=== PATIENT | male | born 1985 | race Caucasian/White ===

== ENCOUNTER 2018-12-22 10:27 | Emergency (ER) | payer BC, OTHER ==
--- NOTE | 2018-12-22 10:51 | ER Document Report ---
ED Medical Screen (RME) - General Chief Complaint: Headache Stated Complaint: HEADACHE/VOMITING Time Seen by Provider: 12/22/18 10:50 Mode of Arrival: Ambulatory Information source: Patient Notes: This is a 33-year-old man with no medical problems who was usual state of health until 10 PM last night when he started having a frontal headache. He states that the headache is "terrible". He was unable to sleep. He denies any fever. He does report photophobia. There is no neck stiffness. He is afebrile in the emergency room. He does report increased stress at work. TRAVEL OUTSIDE OF THE [place] IN LAST 30 DAYS: No - Related Data Allergies/Adverse Reactions: No Known Allergies Allergy (Verified 12/22/18 10:28) Past Medical History - Social History Frequency of alcohol use: Occasional Drug Abuse: None Renal/ Medical History: Denies: Hx Peritoneal Dialysis - Immunizations Hx Diphtheria, Pertussis, Tetanus Vaccination: Yes - pt states UTD Physical Exam - Vital signs Vitals: Temp Pulse Resp BP Pulse Ox 98.3 F 72 18 148/99 H 100 12/22/18 10:32 12/22/18 10:32 12/22/18 10:32 12/22/18 10:32 12/22/18 10:32 Course - Vital Signs Vital signs: Temp Pulse Resp BP Pulse Ox 98.3 F 72 18 148/99 H 100 12/22/18 10:32 12/22/18 10:32 12/22/18 10:32 12/22/18 10:32 12/22/18 10:32
[2018-12-22] MEDS ORDERED: METOCLOPRAMIDE HCL INJ/PF 10 MG/2 ML SDV IV ONE (10:52)
[2018-12-22] MEDS ORDERED: RINGERS SOLUTION,LACTATED 1,000 ML IV ONE (10:52)
[2018-12-22] MEDS ORDERED: DIPHENHYDRAMINE HCL 50 MG/ML VIAL IV ONE (10:53)
[2018-12-22] MEDS ORDERED: PROCHLORPERAZINE EDISYLATE INJ 10 MG/2 ML VIAL IV ONE (11:04)
[2018-12-22 11:08] LABS: ABSOLUTE LYMPHOCYTES (AUTO) 1.2 10^3/uL (0.5-4.7); ABSOLUTE MONOCYTES (AUTO) 0.3 10^3/uL (0.1-1.4); ABSOLUTE NEUT (AUTO) 5.3 10^3/uL (1.7-8.2); BASOPHILS % (AUTO) 0.5 % (0-2); EOSINOPHILS % (AUTO) 0.2 % (0-6); HEMATOCRIT 37.2 % (37.9-51.0); LYMPHOCYTES % (AUTO) 17.6 % (13-45); MEAN CORPUSCULAR HEMOGLOBIN 29.7 pg (27.0-33.4); MEAN CORPUSCULAR HGB CONC 34.9 g/dL (32.0-36.0); MEAN CORPUSCULAR VOLUME 85 fl (80-97); MONOCYTES % (AUTO) 4.6 % (3-13); PLATELET COUNT 398 10^3/uL (150-450); RED BLOOD COUNT 4.38 10^6/uL (4.35-5.55); RED CELL DISTRIBUTION WIDTH 12.8 % (11.5-14.0); SEGMENTED NEUTROPHILS % (AUTO) 77.1 % (42-78); TOTAL CELLS COUNTED % (AUTO) 100 %; WHITE BLOOD COUNT 6.9 10^3/uL (4.0-10.5)
--- NOTE | 2018-12-22 11:36 | RADIOLOGY REPORT (SQ) ---
EXAM DESCRIPTION: CT HEAD WITHOUT COMPLETED DATE/TIME: 12/22/2018 11:15 am REASON FOR STUDY: headache COMPARISON: None. TECHNIQUE: Axial images acquired through the brain without intravenous contrast. Images reviewed wi th bone, brain and subdural windows. Additional sagittal and coronal reconstructions were generated. Images stored on PACS. All CT scanners at this facility use dose modulation, iterative reconstruction, and/or weight based d osing when appropriate to reduce radiation dose to as low as reasonably achievable (ALARA). [facility]: Dose Right [facility]: CareDose [facility]: Dose Right [facility]: Teradose 4D [facility]: Seeqpod RADIATION DOSE: CT Rad equipment meets quality standard of care and radiation dose reduction techniq ues were employed. CTDIvol: 53.2 mGy. DLP: 1097 mGy-cm. mGy. LIMITATIONS: None. FINDINGS: 4 cm x 3 cm x 2 cm pituitary mass is present, evident on axial image 15, coronal images 34 -41, and sagittal image 34. This may represent a macroadenoma or craniopharyngioma. Report called aram Mulligan in the emergency room. This mass effaces the suprasellar cistern and abuts the opt ic chiasm. VENTRICLES: Normal size and contour. CEREBRUM: Pituitary mass. No hemorrhage. No midline shift. No evidence for acute infarction. Amanda l schofield/white matter differentiation. No areas of low density in the white matter. CEREBELLUM: No masses. No hemorrhage. No alteration of density. No evidence for acute infarction. EXTRAAXIAL SPACES: No fluid collections. No masses. ORBITS AND GLOBE: No intra- or extraconal masses. Normal contour of globe without masses. CALVARIUM: No fracture. PARANASAL SINUSES: No fluid or mucosal thickening. SOFT TISSUES: No mass or hematoma. OTHER: No other significant finding. IMPRESSION: 4 x 3 x 2 cm pituitary mass, adenoma versus craniopharyngioma No acute findings EVIDENCE OF ACUTE STROKE: NO. COMMENT: Quality ID # 436: Final reports with documentation of one or more dose reduction techniques (e.g., Automated exposure control, adjustment of the mA and/or kV according to patient size, use of iterative reconstruction technique) TECHNICAL DOCUMENTATION: JOB ID: [id number] [employer]- All Rights Reserved Reading location - IP/workstation name: [email or web address]
[2018-12-22 11:39] LABS: ALANINE AMINOTRANSFERASE 46 U/L (21-72); ALBUMIN 5.3 g/dL (3.5-5.0); ALKALINE PHOSPHATASE 84 U/L (38-126); ANION GAP 11 (5-19); ASPARTATE AMINO TRANSFERASE 31 U/L (17-59); BILIRUBIN,DIRECT 0.2 mg/dL (0.0-0.4); BILIRUBIN,TOTAL 0.5 mg/dL (0.2-1.3); BLOOD UREA NITROGEN 15 mg/dL (7-20); CALCIUM 10.3 mg/dL (8.4-10.2); CARBON DIOXIDE 28 mmol/L (22-30); CHLORIDE 98 mmol/L (98-107); GLUCOSE 123 mg/dL (75-110); POTASSIUM 4.4 mmol/L (3.6-5.0); SODIUM 136.8 mmol/L (137-145); TOTAL PROTEIN 8.6 g/dL (6.3-8.2)
[2018-12-22] MEDS ORDERED: ONDANSETRON HCL INJ/PF 4 MG/2 ML SDV IV ONE (11:56)
[2018-12-22] MEDS ORDERED: MORPHINE SULFATE 10 MG/ML INJ IV ONE (11:56)
[2018-12-22] MEDS ORDERED: DEXAMETHASONE SOD PHOSPHATE INJ 4 MG/1 ML VIAL IV ONE (13:09)
--- NOTE | 2018-12-22 14:11 | RADIOLOGY REPORT (SQ) ---
EXAM DESCRIPTION: CTA HEAD COMPLETED DATE/TIME: 12/22/2018 1:48 pm REASON FOR STUDY: Headache and pituitary mass COMPARISON: CT brain without IV contrast earlier today TECHNIQUE: Post IV contrast scanning, thin section axial imaging through the brain to evaluate the a rterial structures. Source and MIP images are saved and reviewed on PACS. Advanced 3D imaging as volume-rendering, MIPs, SSD performed? yes All CT scanners at this facility use dose modulation, iterative reconstruction, and/or weight based d osing when appropriate to reduce radiation dose to as low as reasonably achievable (ALARA). [facility]: Dose Right [facility]: CareDose [facility]: Dose Right [facility]: Teradose 4D [facility]: [employer] CONTRAST TYPE AND DOSE: contrast/concentration: Isovue 350.00 mg/ml; Total Contrast Delivered: 70.0 ml; Total Saline Delivered: 75.0 ml RENAL FUNCTION: Creatinine 0.8 LIMITATIONS: None. FINDINGS: [place]: The anterior, middle, posterior cerebral arteries are all patent. No ev idence of aneurysm or focal stenosis. However, the bilateral parasellar carotid arteries are displac ed laterally by a pituitary fossa mass. POSTERIOR CIRCULATION: The distal vertebral arteries are patent as is the basilar artery. No aneurysm . BRAIN: Pituitary fossa mass is present, 3.5 cm craniocaudad by 2.7 cm transverse by 2.1 cm AP. Inter mediate density material in the mass, hemorrhage superimposed on craniopharyngioma or pituitary macro adenoma may be present. This flattens the undersurface of the optic chiasm and fills the suprasellar cisterns. Cavernous sinuses are displaced laterally. BONES: Bony remodeling with enlargement of the sella turcica. SINUSES: No fluid or mucosal thickening. OTHER: Neck soft tissues in the field of view are unremarkable. No carotid bifurcation stenosis. No cervical carotid or cervical vertebral artery dissection. IMPRESSION: NO CTA EVIDENCE OF STENOSIS OR ANEURYSM OF THE [place]. 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 BORDERS OF THIS LESION ARE BETTER VISUALIZED THAN ON THE NON CONTRASTED STUDY. TECHNICAL DOCUMENTATION: JOB ID: [id number] Quality ID # [id number]: Final reports with documentation of one or more dose reduction techniques (e.g., Au tomated exposure control, adjustment of the mA and/or kV according to patient size, use of iterative reconstruction technique) 2010 [employer]- All Rights Reserved Reading location - IP/workstation name: [email or web address]
[2018-12-22 14:36] LABS: FREE T4 (FREE THYROXINE) 0.72 ng/dL (0.78-2.19)
--- NOTE | 2018-12-22 14:46 | ER Document Report ---
ED Headache - General Chief Complaint: Headache Stated Complaint: HEADACHE/VOMITING Time Seen by Provider: 12/22/18 10:50 Primary Care Provider: MOHINI ARIAS DO [Primary Care Provider] - Follow up as needed Mode of Arrival: Ambulatory Notes: Patient says that he has had a headache since about 10 PM last night. He has no history of headaches and is never been told he had migraine headaches. He says that he had eaten supper last night and went to bed and about couple hours later, he was awakened with this severe headache. Worst headache he has ever had. He was not able to sleep the rest of the night. He has not had any problems with his balance or walking. Has noted some blurry vision, but no other visual disturbances. He vomited a couple of times during the night and also had similar number of diarrhea stools. Denies any abdominal pains. Has not had any fever. Past medical history is essentially unremarkable. TRAVEL OUTSIDE OF THE [place] IN LAST 30 DAYS: No - Related Data Allergies/Adverse Reactions: No Known Allergies Allergy (Verified 12/22/18 10:28) Past Medical History - General Information source: Patient - Social History Smoking Status: Never Smoker Frequency of alcohol use: Occasional Drug Abuse: None Family History: Reviewed & Not Pertinent Patient has suicidal ideation: No Patient has homicidal ideation: No Neurological Medical History: Denies: Hx Cerebrovascular Accident, Hx Migraine, Hx Seizures Surgical Hx: Negative Past Surgical History: Reports: None - Immunizations Hx Diphtheria, Pertussis, Tetanus Vaccination: Yes - pt states UTD Review of Systems - Review of Systems Notes: REVIEW OF SYSTEMS: CONSTITUTIONAL : Denies fever. EENT: Denies eye, ear, nose or mouth or throat pain or other symptoms. CARDIOVASCULAR: Denies chest pain. RESPIRATORY: Denies cough, chest congestion, or shortness of breath. GASTROINTESTINAL: Denies abdominal pain or nausea, vomiting, or diarrhea. GENITOURINARY: Denies difficulty or painful urinating, urinary frequency, blood in urine. MUSCULOSKELETAL: Denies back or neck pain. Denies joint pain or swelling. SKIN: Denies rash or skin lesions. NEUROLOGICAL: Denies LOC or altered mental status. See HPI regarding headache. Denies sensory loss or motor deficits. ALL OTHER SYSTEMS REVIEWED AND NEGATIVE. Physical Exam - Vital signs Vitals: Temp Pulse Resp BP Pulse Ox 98.3 F 72 18 148/99 H 100 12/22/18 10:32 12/22/18 10:32 12/22/18 10:32 12/22/18 10:32 12/22/18 10:32 Interpretation: Normal. No: Febrile Notes: PHYSICAL EXAMINATION: GENERAL: Well-appearing, in no acute distress. Vital signs are all essentially normal. Appears uncomfortable. HEAD: Atraumatic, normocephalic. EYES: Pupils equal round and reactive to light, extraocular movements intact. ENT: oropharynx clear without exudates. Moist mucous membranes. NECK: Normal range of motion, supple. LUNGS: Breath sounds clear and equal bilaterally. HEART: Regular rate and rhythm without murmurs. ABDOMEN: Soft, nontender. No guarding or rebound. No masses. BACK: No tenderness throughout entire back. EXTREMITIES: Normal range of motion without pain. NEUROLOGICAL: Normal speech, normal gait. Normal sensory, motor, and reflex exams. Awake, alert, and oriented x3. Cranial nerves normal. PSYCH: Normal mood, normal affect. SKIN: Warm, dry, no rashes. Course - Re-evaluation Re-evalutation: May patient and family aware of findings and the patient will need the services of a major referral institution like [facility], where there neurosurgical staff is well recognized as a [facility]. I spoke with Dr. Austin, neurosurgery at [facility], who said that they would not do anything with the patient if he was being seen today. He recommended a CTA of the patient's brain to make sure he does not have an aneurysm as well as his pituitary mass. He recommended not doing a lumbar puncture for concerns over possible increased intracranial pressure. It would be unlikely that the patient would have both a brain tumor as well as a intracranial hemorrhage at the same time. There are no signs or symptoms of an infectious process. advised lab studies that they would like to have. All of the studies were ordered. While patient was here, 's staff, endocrinology, at [facility] contacted the patient's mother and they have arranged for the patient to be seen in their office on Tuesday morning. All lab studies, imaging studies, were provided to the family to take with them. Patient has been given a note for work for the next 10 days. Sufficient pain medications were provided. Patient was discharged on a low dose of Decadron 2 mg twice a day, again at Dr. Austin's - Vital Signs Vital signs: Temp Pulse Resp BP Pulse Ox 98.3 F 72 18 148/99 H 95 12/22/18 10:32 12/22/18 10:32 12/22/18 14:00 12/22/18 10:32 12/22/18 14:00 - Laboratory Result Diagrams: 12/22/18 10:58 12/22/18 10:58 Laboratory results interpreted by me: 12/22/18 12/22/18 10:58 10:58 Hgb 13.0 L Hct 37.2 L Sodium 136.8 L Glucose 123 H Calcium 10.3 H Total Protein 8.6 H Albumin 5.3 H - Diagnostic Test Radiology reviewed: Image reviewed, Reports reviewed - Patient CT scan shows a fairly large pituitary mass. Discharge - Discharge Clinical Impression: Headache, Pituitary brain tumor Condition: Stable Disposition: HOME, SELF-CARE Additional Instructions: Brain tumor Your workup today found that you have a tumor of your pituitary of your brain. We have contacted neurosurgeons at [facility] and they would like to see you in their office in about a week to assess the situation and make recommendations for your care. They have made recommendations of additional lab work for us to order and of medications for your condition. ANTINAUSEA MEDICATION: You have been given a medication to suppress nausea and vomiting. This type of medication can be given as a shot, pill, or suppository. It will usually last for many hours. Pills and shots usually last six to eight hours, suppositories last about 12 hours. For the typical illness, only one or two doses of the medication may be necessary. Mild lightheadedness may occur. This type of medicine can cause drowsiness. Do not drive or operate dangerous machinery while under its influ ence. Do not mix with alcohol. See your doctor at once if you have muscle spasms or tightness, or uncontrollable motions (particularly of the neck, mouth, or jaw). Persistent vomiting or severe lightheadedness should also be evaluated by the physician. INTRAVENOUS COMPAZINE FOR HEADACHE: You have received therapy for headaches, using intravenous Compazine. This treatment is dramatically successful in relieving the headache in about 50 percent of cases. When it works, it provides a rapid method of eliminating the headache without resorting to narcotics (and the problems associated with them). Most patients still feel fully alert after the Compazine, but others may be slightly drowsy. It's best not to drive or work with machinery for six to eight hours. Do not take alcohol or other medication unless you discuss it with the doctor. If you develop tightness and spasms in your muscles, especially the neck and tongue, you should return. This is a side effect which can be treated. PAIN MEDICATION INJECTION: You have received an injection of a pain medication. You should experience significant pain relief within 45 minutes. This drug is a narcotic -- it will impair your judgement, slow your reaction time and make you sleepy (as well as relieve your pain). Narcotics also can cause nausea. You should not drive, work with machinery, or perform any task requiring mental alertness until all effects of the medication are gone -- six to eight hours. Do not take any alcohol, or sedatives, and do not take any other medication without checking with your physician. ORAL NARCOTIC MEDICATION: You have been given a prescription for pain control. This medication is a narcotic. It's best taken with food, as nausea can result if taken on an empty stomach. Don't operate machinery or drive within six hours of taking this medication. Do not combine this medicine with alcohol, or with any medication which can cause sedation (such as cold tablets or sleeping pills) unless you get permission from the physician. Narcotics tend to cause constipation. If possible, drink plenty of fluids and eat a diet high in fiber and fruits. STEROID MEDICATION: You have been given a medicine of the cortisone/steroid class. This medication is used to control inflammation or allergy. It is usually only given for a short period of time, until the acute process subsides. There are usually no side effects from short-term use of cortisone-like medications. Some persons feel an increased sense of well-being and are not sleepy at bedtime. Long-term use of cortisone medications is best avoided, unless required for a severe condition. If your condition does not remit, or relapses after the course of corticosteroid medication, you should consult your physician. FOLLOW-UP CARE: If you have been referred to a physician for follow-up care, call the physicians office for an appointment as you were instructed or within the next two days. If you experience worsening or a significant change in your symptoms, notify the physician immediately or return to the Emergency Department at any time for re-evaluation. If you have not heard from Dr. Dominguez's office by Tuesday at noon, call me on my cell phone or my home number and I will see what I can do about facilitating your appointment up there at [facility]. Prescriptions: Dexamethasone [Decadron 4 Mg Tablet] 2 mg PO BID #20 tablet Ondansetron [Zofran Odt 4 mg Tablet] 1 - 2 tab PO Q4H PRN #25 tab.rapdis PRN Reason: For Nausea/Vomiting Oxycodone HCl/Acetaminophen [Percocet 5-325 mg Tablet] 1 - 2 tab PO Q4H PRN #25 tablet PRN Reason: Forms: Return to Work
[2018-12-22 14:50] LABS: THYROID STIMULATING HORMONE 0.36 uIU/mL (0.47-4.68)
[2018-12-22 15:13] VITALS: BP 123/77
== END 2018-12-22 15:13 | disposition home or self-care (01) ==
LOC: ER 10:27
DX: D35.2 Benign neoplasm of pituitary gland (principal); R51 Headache; R11.10 Vomiting, unspecified; R19.7 Diarrhea, unspecified
CPT/HCPCS: 99284; 96361; 96374; 96375; 36415; 84439; 84443; 84403; 85025; 80053; 84402; 82533; 83001; 83002; 84146; 70450; 70496; J1100; J1200; J2270; J0780; J2405; J7120

== ENCOUNTER 2018-12-23 10:48 | Emergency (ER) | payer BC ==
--- NOTE | 2018-12-23 11:07 | ER Document Report ---
ED Medical Screen (RME) - General Chief Complaint: Loss of Vision Stated Complaint: VISION ISSUE Time Seen by Provider: 12/23/18 11:02 Primary Care Provider: MOHINI ARIAS DO [Primary Care Provider] - Follow up as needed Mode of Arrival: Ambulatory Information source: Patient, Relative, [facility] Records Notes: 33-year-old male presents with complaint of headache, visual changes. Was recently diagnosed with a brain tumor but states headache has progressively gotten worse. Reports that he has an appointment at [facility] on Tuesday but could not handle the headache. I have greeted and performed a rapid initial assessment of this patient. A comprehensive ED assessment and evaluation of the patient, analysis of test results and completion of medical decision making process we will be contacted by additional ED providers. PHYSICAL EXAMINATION: Vital signs reviewed GENERAL: Ill-appearing. LUNGS: No respiratory distress Musculoskeletal: Normal range of motion NEUROLOGICAL: Normal speech, normal gait. PSYCH: Normal mood, normal affect. SKIN: Warm, Dry, normal turgor, no rashes or lesions noted. TRAVEL OUTSIDE OF THE [place] IN LAST 30 DAYS: No - HPI Onset: Other Onset/Duration: Persistent, Worse Quality of pain: Throbbing Severity: Moderate Associated Symptoms: Headache, Other - Visual loss Exacerbated by: Denies Relieved by: Denies Similar symptoms previously: No Recently seen / treated by doctor: Yes - Related Data Smoking: Non-smoker Frequency of alcohol use: None Drug Abuse: None Allergies/Adverse Reactions: No Known Allergies Allergy (Verified 12/22/18 10:28) Past Medical History Neurological Medical History: Denies: Hx Cerebrovascular Accident, Hx Migraine, Hx Seizures Renal/ Medical History: Denies: Hx Peritoneal Dialysis - Immunizations Hx Diphtheria, Pertussis, Tetanus Vaccination: Yes - pt states UTD Physical Exam - Vital signs Vitals: Temp Pulse Resp BP Pulse Ox 99.0 F 71 16 127/88 H 100 12/23/18 10:53 12/23/18 10:53 12/23/18 10:53 12/23/18 10:53 12/23/18 10:53 Course - Vital Signs Vital signs: Temp Pulse Resp BP Pulse Ox 99.0 F 71 16 127/88 H 100 12/23/18 10:53 12/23/18 10:53 12/23/18 10:53 12/23/18 10:53 12/23/18 10:53 Doctor's Discharge - Discharge Referrals: MOHINI ARIAS DO [Primary Care Provider] - Follow up as needed
[2018-12-23] MEDS ORDERED: LORAZEPAM INJ 2 MG/1 ML VIAL IV ONE (11:23)
[2018-12-23] MEDS ORDERED: NORMAL SALINE 1000 ML 1,000 ML IV ONE (11:24)
[2018-12-23] MEDS ORDERED: TETRACAINE HCL 0.5% OPH SOLN 4 ML OU ONE (11:39)
--- NOTE | 2018-12-23 11:40 | ER Document Report ---
ED Neuro Symptoms/Deficit - General Chief Complaint: Loss of Vision Stated Complaint: VISION ISSUE Time Seen by Provider: 12/23/18 11:02 Primary Care Provider: MOHINI ARIAS DO [Primary Care Provider] - Follow up as needed Mode of Arrival: Ambulatory Information source: Patient Notes: Patient is a 33-year-old male who was just diagnosed yesterday with a 3 x 4 x 2 cm pituitary tumor after 1 night of severe headache with nausea and vomiting, patient was sent home yesterday after Dr. paulnio in the emergency department did discuss case with neurosurgeon at [facility], he was sent home with Percocet 53 25 and dexamethasone, to follow-up with neurosurgeon at [facility] on Tuesday, he was seen on Tuesday. Patient returns today for vision loss, stating that his vision bilaterally is "pixelated." Patient states that he did have some blurred vision yesterday but it worsened overnight. He states the headaches do get mildly better with the Percocet for a few hours. TRAVEL OUTSIDE OF THE [place] IN LAST 30 DAYS: No - Related Data Allergies/Adverse Reactions: No Known Allergies Allergy (Verified 12/22/18 10:28) Past Medical History - General Information source: Patient, Relative, [facility] Records - Social History Smoking Status: Never Smoker Frequency of alcohol use: None Drug Abuse: None Family History: Reviewed & Not Pertinent Patient has suicidal ideation: No Patient has homicidal ideation: No Neurological Medical History: Denies: Hx Cerebrovascular Accident, Hx Migraine, Hx Seizures Renal/ Medical History: Denies: Hx Peritoneal Dialysis - Immunizations Hx Diphtheria, Pertussis, Tetanus Vaccination: Yes - pt states UTD Review of Systems - Review of Systems Constitutional: No symptoms reported EENT: No symptoms reported Cardiovascular: No symptoms reported Respiratory: No symptoms reported Gastrointestinal: No symptoms reported Genitourinary: No symptoms reported Male Genitourinary: No symptoms reported Musculoskeletal: No symptoms reported Skin: No symptoms reported Hematologic/Lymphatic: No symptoms reported Neurological/Psychological: See HPI Physical Exam - Vital signs Vitals: Temp Pulse Resp BP Pulse Ox 99.0 F 71 16 127/88 H 100 12/23/18 10:53 12/23/18 10:53 12/23/18 10:53 12/23/18 10:53 12/23/18 10:53 - Notes Notes: PHYSICAL EXAMINATION: GENERAL: lying in dark room, uncomfortable appearing, but in no acute distress. HEAD: Atraumatic, normocephalic. EYES: visual field normal but cannot make out fingers, just my hand, Pupils equal round and reactive to light, extraocular movements intact, sclera anicter ic, conjunctiva are normal. ENT: Airway patent NECK: Normal range of motion, supple without lymphadenopathy LUNGS: CTAB and equal. No wheezes rales or rhonchi. HEART: Regular rate and rhythm without murmurs EXTREMITIES: Normal range of motion, no pitting edema. No cyanosis. NEUROLOGICAL: see eyes above, otherwise Cranial nerves grossly intact. Normal sensory/motor exams. PSYCH: Normal mood, normal affect. SKIN: Warm, Dry, normal turgor, no rashes or lesions noted Course - Re-evaluation Re-evalutation: 12/23/18 12:54 pressures are 14 and 21 in the right eye and left eye consecutively, spoke with Dr. Austin, neurosurgeon at [facility] who spoke with Dr. Castellanos about this patient yesterday and whom patient was going to follow-up with in 2 days. With loss of vision worsening, he did want a CT scan without contrast to rule out bleed at this time and wants him transferred to [facility] to go to the operating room today as he stated that this made this case emergent. Patient was ordered hydrocortisone IV dose as well as hydrocortisone continuous IV infusion per neurosurgeon's request. Patient was given Ativan and did have much relief, also small amount of morphine. He is asleep at this time in no distress. 12/23/18 12:58 Radiologist called me about CT today, essentially the same as yesterday although a bleed inside the mass cannot be excluded, there is no evidence of bleed outside of the mass. 12/23/18 13:01 12/23/18 14:41 pt doing well, transport here to take him to [facility], no complaints - Vital Signs Vital signs: Temp Pulse Resp BP Pulse Ox 98.7 F 71 18 154/90 H 96 12/23/18 14:23 12/23/18 10:53 12/23/18 14:23 12/23/18 14:23 12/23/18 14:23 Critical Care Note - Critical Care Note Total time excluding time spent on procedures (mins): 35 - 35 minutes spent in critical care time with patient, consulted with attending, speaking with family, placing orders and evaluating tests and labs. Discharge - Discharge Clinical Impression: Pituitary tumor, Vision loss Condition: Stable Disposition: Trace Referrals: MOHINI ARIAS DO [Primary Care Provider] - Follow up as needed
[2018-12-23] MEDS ORDERED: HYDROCORTISONE SOD SUCCINATE INJ/PF 100 MG/2 ML SDV IV ONE (12:04)
[2018-12-23] MEDS ORDERED: HYDROCORTISONE SOD SUCCINATE IV PRN ×2 (12:25)
[2018-12-23] MEDS ORDERED: WATER IV PRN ×2 (12:25)
[2018-12-23] MEDS ORDERED: DEXTROSE 5% IV PRN ×2 (12:25)
[2018-12-23] MEDS ORDERED: MORPHINE SULFATE 10 MG/ML INJ IV ONE (12:50)
--- NOTE | 2018-12-23 13:06 | RADIOLOGY REPORT (SQ) ---
EXAM DESCRIPTION: CT HEAD WITHOUT COMPLETED DATE/TIME: 12/23/2018 12:30 pm REASON FOR STUDY: worsening roman, r/o bleed per neurosurgeon at [place] COMPARISON: CT head and CT angiogram head 12/22/2018. TECHNIQUE: Axial images acquired through the brain without intravenous contrast. Images reviewed wi th bone, brain and subdural windows. Images stored on PACS. All CT scanners at this facility use dose modulation, iterative reconstruction, and/or weight based d osing when appropriate to reduce radiation dose to as low as reasonably achievable (ALARA). [facility]: Dose Right [facility]: CareDose [facility]: Dose Right [facility]: Teradose 4D [facility]: Smart [employer] RADIATION DOSE: CT Rad equipment meets quality standard of care and radiation dose reduction techniq ues were employed. CTDIvol: 53.2 mGy. DLP: 1097 mGy-cm. mGy. LIMITATIONS: None. FINDINGS: VENTRICLES: Normal size and contour. CEREBRUM: Redemonstration of previously described mass at the pituitary fossa, suboptimally evaluated on noncontrast CT, measuring approximately 2.2 x 2.3 x 3.7 cm. Redemonstration of increased density at the mass, may represent hemorrhage superimposed on craniopharyngioma or pituitary macroadenoma. No midline shift. Normal schofield/white matter differentiation. No evidence for acute territorial infar ction. CEREBELLUM: No mass effect. No alteration of density. No evidence for acute infarction. EXTRAAXIAL SPACES: No fluid collections. ORBITS AND GLOBE: Symmetrical contour of the globes. CALVARIUM: No depressed skull fracture. PARANASAL SINUSES: No air-fluid level. SOFT TISSUES: No hematoma. IMPRESSION: Redemonstration of 3.7 cm mass at the sella, differential considerations include macroad enoma versus craniopharyngioma. Redemonstration of increased density at the mass, may represent supe rimposed hemorrhage. EVIDENCE OF ACUTE STROKE: NO. COMMUNICATION The critical information above was relayed directly by me by telephone to Teodora Mulligan on 12/23/2018 at 12:56 hrs with readback verification. Quality ID # [id number]: Final reports with documentation of one or more dose reduction techniques (e.g., Au tomated exposure control, adjustment of the mA and/or kV according to patient size, use of iterative reconstruction technique) TECHNICAL DOCUMENTATION: JOB ID: [id number] [employer]- All Rights Reserved Reading location - IP/workstation name: [email or web address]
[2018-12-23 16:58] VITALS: BP 171/104
== END 2018-12-23 14:45 | disposition short-term general hospital (02) ==
LOC: ER 10:48
DX: D49.7 Neoplasm of unspecified behavior of endocrine glands and other parts of nervous system (principal); H54.3 Unqualified visual loss, both eyes; R51 Headache
CPT/HCPCS: 96376; 99291; 96361; 96375; 96365; 70450; J1720; J2270; J2060; J7030; J3490